=== PATIENT | male | born 1960 | race Caucasian/White ===

== ENCOUNTER 2016-12-24 09:59 | Day surgery (SDC) | payer OTHER ==
[2016-12-23 09:40] VITALS: BMI 34.8
[2016-12-24] MEDS ORDERED: LIDOCAINE HCL/PF 2% SDV 5ML VIAL ONE (10:30)
[2016-12-24] MEDS ORDERED: PROPOFOL 20 ML ONE ×3 (10:30)
[2016-12-24 11:28] VITALS: TEMP 97.5
[2016-12-24 12:25] VITALS: BP 117/66; PULSE 60
--- NOTE | 2016-12-27 11:29 | PATH ---
Surgical Pathology Report Patient Name: FARRUKH ALEXANDER [facility]. Rec. #: [id number] /Age/Gender: 1960 (Age: 56) / M Account: [id number] Location: ASU-ENDOSCOPY Taken: 12/24/2016 Received: 12/24/2016 Reported: 12/27/2016 Physicians: Patel Spangler M.D. Specimen(s) Received A: SIGMOID COLON POLYP B: RIGHT COLON POLYP C: BX DISTAL TRANSVERSE POLYP D: BX ANASTOMOSIS SITE Clinical History History of colon cancer Transverse sigmoid right colon polyps, anastomosis Final Diagnosis A. COLON, SIGMOID, POLYP, POLYPECTOMY: SERRATED ADENOMA. B. COLON, RIGHT, POLYP, POLYPECTOMY: TUBULAR ADENOMA. C. COLON, DISTAL TRANSVERSE, POLYP, POLYPECTOMY: TUBULAR ADENOMA. D. ANASTOMOSIS SITE, BIOPSY: COLONIC MUCOSA WITH FOCAL INFLAMED GRANULATION TISSUE, HYPERPLASTIC CHANGE AND MILD ARCHITESTURAL DISARRAY. NO DYSPLASIA/ADENOMA OR CARCINOMA IDENTIFIED. Electronically Signed Maurizio Edwards M.D. Gross Description A. Received in formalin, labeled "sigmoid colon polyp" is a flowers, irregular portion of soft tissue measuring 0.3 cm in greatest dimension. The specimen is submitted in toto in one cassette. B. Received in formalin, labeled "right colon polyp" is a flowers, irregular portion of soft tissue measuring 0.4 cm in greatest dimension. The specimen is submitted in toto in one cassette. C. Received in formalin, labeled "transverse colon polyp" are 2 flowers, irregular portions of soft tissue averaging 0.3 cm in greatest dimension. The specimens are submitted in toto in one cassette. D. Received in formalin, labeled "biopsy anastomosis site" are 3 flowers, irregular portions of soft tissue ranging from 0.2-0.5 cm in greatest dimension. The specimens are submitted in toto in one cassette. 12/24/201612/24/2016
== END 2016-12-24 12:24 | disposition home or self-care (01) ==
LOC: JOR 09:59 → JASU-ENDO 09:59
PROVIDERS: ATTEND Internal Medicine Gastroenterology
PROC: 0DBK8ZX Excision of Ascending Colon, Via Natural or Artificial Opening Endoscopic, Diagnostic (ICD-10-PCS; 2016-12-24)
PROC: 0DBL8ZX Excision of Transverse Colon, Via Natural or Artificial Opening Endoscopic, Diagnostic (ICD-10-PCS; 2016-12-24)
PROC: 0DBN8ZX Excision of Sigmoid Colon, Via Natural or Artificial Opening Endoscopic, Diagnostic (ICD-10-PCS; principal; 2016-12-24 11:00)
DX: Z12.11 Encounter for screening for malignant neoplasm of colon (principal); Z85.038 Personal history of other malignant neoplasm of large intestine; D12.5 Benign neoplasm of sigmoid colon; D12.2 Benign neoplasm of ascending colon; D12.3 Benign neoplasm of transverse colon; K64.8 Other hemorrhoids; Z98.0 Intestinal bypass and anastomosis status
CPT/HCPCS: 88305-TC

== ENCOUNTER 2019-06-23 17:25 | Emergency (ER) | payer OTHER ==
[2019-06-23 17:38] VITALS: BP 166/95; PULSE 72; TEMP 98.1; BMI 34.4
--- NOTE | 2019-06-23 17:52 | PDOC ---
History of Present Illness - General Chief Complaint: Wound Stated Complaint: ABCESS Time Seen by Provider: 06/23/19 17:36 History Source: Patient Exam Limitations: Clinical Condition - History of Present Illness Initial Comments: 06/23/19 17:55 Patient with past medical history of colon cancer present with complaint of one- week history of abscess to chest wall or right lower lateral aspect of chest which has been draining with hot compress performs again. Patient reported mild redness to area of abscess. Denies pain to area. Denies fever, chills. Denies any other symptoms Timing/Duration: reports: week (1 week) Past History - Past Medical History Allergies/Adverse Reactions: Allergies Allergy/AdvReac Type Severity Reaction Status Date / Time No Known Allergies Allergy Verified 06/23/19 17:35 Home Medications: Ambulatory Orders Metoprolol Succinate [Toprol XL -] 25 mg PO BID 12/23/16 Sulfamethoxazole/Trimethoprim [Bactrim Ds -] 1 tab PO BID #14 tablet 06/23/19 Anemia: No Asthma: No Cancer: No (LEFT EAR MELANOMA, COLON CANCER) Cardiac Disorders: No CVA: No COPD: No CHF: No Dementia: No Diabetes: No GI Disorders: Yes (COLON POLYPS, GASTRITIS, PORTAL GASTROPATHY, Stage 1 Colon cancer) Disorders: No HTN: Yes Hypercholesterolemia: No Liver Disease: Yes (BHAGAT, CHRONIC HEPATITIS B) Seizures: No Thyroid Disease: No Lung CA: Yes (carcinoma) Other medical history: Melonoma stage 4 - Surgical History Abdominal Surgery: No Appendectomy: No Cardiac Surgery: No Cholecystectomy: No Lung Surgery: No Neurologic Surgery: No Orthopedic Surgery: No - Immunization History Immunization Up to Date: Yes - Psycho Social/Smoking Cessation Hx Smoking History: Unknown if ever smoked Have you smoked in the past 12 months: No Information on smoking cessation initiated: No Hx Alcohol Use: No Drug/Substance Use Hx: No Substance Use Type: None Hx Substance Use Treatment: No Review of Systems - Review of Systems Able to Perform ROS?: Yes Is the patient limited Maltese proficient: No Constitutional: No: Chills, Fever, Malaise HEENTM: No: Symptoms Reported Respiratory: No: Symptoms reported Cardiac (ROS): No: Symptoms Reported ABD/GI: No: Symptoms Reported Musculoskeletal: Yes: Symptoms Reported, See HPI, Muscle Pain (small abscess to right side chest wall ) Integumentary: Yes: Symptoms Reported, See HPI, Erythema (mild erythema around abscess), Lumps (small abscess to right side lateral chest wall ) Neurological: No: Symptoms reported All Other Systems: Reviewed and Negative *Physical Exam - Vital Signs Last Vital Signs Temp Pulse Resp BP Pulse Ox 98.1 F 72 16 166/95 100 06/23/19 17:32 06/23/19 17:32 06/23/19 17:32 06/23/19 17:32 06/23/19 17:32 - Physical Exam General Appearance: Yes: Nourished, Appropriately Dressed. No: Apparent Distress HEENT: positive: Normal ENT Inspection Neck: positive: Supple Respiratory/Chest: positive: Lungs Clear, Normal Breath Sounds. negative: Respiratory Distress, Accessory Muscle Use Musculoskeletal: positive: Normal Inspection, Other (1cm hard induration to right side of lateral lower chest wall) Extremity: positive: Normal Inspection Integumentary: positive: Normal Color, Erythema (mild localized erythema surrounding 1cm abscess to right side chest wall), Other (1cm hard induration to right side of lateral lower chest wall) Neurologic: positive: Fully Oriented, Alert, Normal Mood/Affect, Normal Response Medical Decision Making - Medical Decision Making 06/23/19 17:56 Patient with past medical history of colon cancer present with complaint of one- week history of abscess to chest wall or right lower lateral aspect of chest which has been draining with hot compress performs again. Patient reported mild redness to area of abscess. Denies pain to area. Denies fever, chills. Denies any other symptoms Exam significant for 1 cm abscess to chest wall right side of lower chest wall which erupted with pressure is started draining purulent yellow discharge. Wound culture obtained. Bacitracin applied to wound and wound covered with 2 x 2 gauze and Tegaderm. Patient stable for discharge on Bactrim antibiotics pending wound culture result with PCP follow-up Discharge - Discharge Information Problems reviewed: Yes Clinical Impression/Diagnosis: Cutaneous abscess of chest wall Condition: Stable Disposition: HOME - Admission No - Additional Discharge Information Prescriptions: Sulfamethoxazole/Trimethoprim [Bactrim Ds -] 1 tab PO BID #14 tablet - Follow up/Referral Referrals: Leigh Moraes MD [Primary Care Provider] - - Patient Discharge Instructions Patient Printed Discharge Instructions: DI for Skin Abscess Additional Instructions: Continue with hot compress 2-3 times a day as needed for abscess. Continue applying bacitracin to abscess twice a day. Take prescribed antibiotics and finish it. Follow-up with primary care - Post Discharge Activity
== END 2019-06-23 17:59 | disposition home or self-care (01) ==
LOC: JERFT 17:25
DX: L02.213 Cutaneous abscess of chest wall (principal); Z85.118 Personal history of other malignant neoplasm of bronchus and lung; B19.10 Unspecified viral hepatitis B without hepatic coma; Z85.820 Personal history of malignant melanoma of skin; K92.9 Disease of digestive system, unspecified; I10 Essential (primary) hypertension; K75.81 Nonalcoholic steatohepatitis (NASH)
CPT/HCPCS: 87070; 87205; 99282-25